=== PATIENT | male | born 1980 | race Caucasian/White ===

== ENCOUNTER → 2017-09-06 18:04 | Outpatient (CLI) | payer OTHER, SELFPAY | PROVIDERS: Family Provider Family Medicine; PCP Family Medicine; Visit Provider Podiatrist | DX: S90.852A Superficial foreign body, left foot, initial encounter (principal) | CPT/HCPCS: 87070; 87205 ==

== ENCOUNTER 2022-07-27 22:41 | Emergency (ER) | payer OTHER, SELFPAY ==
[2022-07-27 22:41] VITALS: BP 141/106; PULSE 71; RESP 18; TEMP 37; O2SAT 93; BMI 38.2
--- NOTE | 2022-07-27 22:55 | EX.ED.UPPERE ---
HPI History of Present Illness HPI Narrative: Patient presents with a laceration to his left hand that occurred tonight. Patient states he was making maple syrup and cut his hand on the edge of a large piece of sheet metal. Patient states that there was large amount of bleeding initially. Patient states that his friend dressed it and applied pressure. Patient denies any paresthesias or weakness. Patient is unsure of his last tetanus. Patient denies any other injuries. Chief Complaint: Laceration Informant: patient Occured/Mechanism Comment: Cut on the corner of a piece of sheet metal. Onset/Context/Timing Onset: Today Context: Sudden Onset Timing: Continuous Quality of Pain: Dull Location: Dorsum of the left hand Worsened by: Nothing Relieved by: Nothing Associated Symptoms Associated Symptoms: Negative for Parasthesia, Weakness or Loss of Funtion Narrative Tetanus Immunization: Unknown PFSH [facility] Medical History (Updated 07/27/22 @ 23:[address] Kevin Hare DO) Injury of meniscus of knee Medical History no medical history Home Medications amoxicillin 875 mg-potassium clavulanate 125 mg tablet 875 mg PO Q12H ##10 12/27/16 [Rx Last Taken Unknown] Allergy/AdvReac Type Severity Reaction Status Date / Time No Known Allergies Allergy Verified 07/27/22 22:44 Surgical History (Updated 07/27/22 @ 22:[address] Kevin Hare DO) H/O hernia repair Hx of arthroscopy of right knee Social History Smoking Status: Never smoker ROS ROS ED Constitutional Constitutional ED: Denies chills or fever(s) Eyes Eyes: Denies blurry vision or change in vision ENT ENT ED: Denies rhinorrhea or sore throat Cardiovascular Cardiovascular: Denies chest pain or palpitations Respiratory/Chest Respiratory/Chest: Denies cough or dyspnea Gastrointestinal Gastrointestinal: Denies nausea or vomiting Genitourinary Genitourinary ED: Denies dysuria or hematuria Musculoskeletal Musculoskeletal: Denies back pain or neck pain Integumentary Denies abscess or rash Neurologic Neurologic: Denies headache(s) or weakness Allergic/Immunologic Allergic/Immunologic ED: Denies mouth swelling or urticaria EXAM Physical Exam Const Vital Signs: 07/27/22 22:41 Temperature 98.6 F Temperature Source Temporal Pulse Rate 71 Respiratory Rate 18 Blood Pressure 141/106 H Blood Pressure Mean 117 Pulse Ox 93 Oxygen Delivery Method Room Air Positive well nourished and well developed General Appearance ED: well developed and NAD HEENT Reports moist mucous membranes Neck full ROM and supple Neuro oriented x3, CN's II-XII intact bilaterally, moves all extremities, no focal motor deficits and no sensory deficits noted Sensorium / Orientation: alert Motor Exam: strength 5/5 throughout Psych mental status grossly normal Skin Skin Narrative: There is a 2.5 cm full-thickness linear laceration of the dorsal aspect of the left hand. There is moderate gapping of the wound margins. There are no foreign bodies visualized. There is no active bleeding noted. There is no bony crepitance or step-off. There is full range of motion. Sensation was intact to light touch in all digits. Capillary refill is less than 2 seconds in all digits. MDM MDM MDM Narrative Medical decision making narrative: The patient was advised of the need for sutures. Patient is agreeable with this. The wound was cleaned and irrigated with copious amounts of normal saline. The wound was anesthetized with 1% plain lidocaine locally. The wound was closed with 5 simple interrupted #4-0 nylon sutures under sterile technique. Patient tolerated the procedure well. Bacitracin dressing was applied. Patient was given a tetanus booster. Patient was instructed to keep the wound clean and dry. Patient was instructed to follow-up with his primary care physician in 5 to 7 days for wound recheck and suture removal. Patient understood and was agreeable with the plan. All questions were answered. Procedures Lacerations Left hand: Length: 2.5 cm Depth: Sub Q Shape: Linear Prep: Sterile Conditions and Chlorhexadine Laceration repair: Irrigated, Lidocaine, Local, Skin sutures and Wound explored Irrigated (ml): 100 Number of Sutures/Ralph: 5 Suture Information: Ethilon, Simple and 4-0 Discharge Plan Triage Chief Complaint: Laceration ED Provider: Kevin Hare Dx/Rx/DC Orders Clinical Impression: Laceration of left hand Instructions: ED Laceration, Hand: All Closures Prescriptions: No Action amoxicillin-pot clavulanate 875 MG tablet 875 mg PO Q12H Qty: 10 0RF Primary Care Provider: Care Physician,No Primary Referrals: NOT,DEFINED [Non-Staff] - 7 Days for suture removal Disposition Disposition: Home, Self Care
[2022-07-27] MEDS: Diphth,Pertuss(Acell),Tet Vac 0.5 ML Vial IM (23:05)
[2022-07-27] MEDS: Lidocaine 1% (20 ml mdv) 20 ML Vial INFILT (23:06)
== END 2022-07-28 | disposition home or self-care (01) ==
PROVIDERS: Emergency Provider Emergency Medicine; Visit Provider Emergency Medicine
DX: S61.412A Laceration without foreign body of left hand, initial encounter (principal); X58.XXXA Exposure to other specified factors, initial encounter
CPT/HCPCS: 12001; 99285

== ENCOUNTER 2023-11-14 02:33 | Emergency (ER) | payer OTHER, SELFPAY ==
[2023-11-14 02:34] VITALS: BP 148/88; PULSE 63; RESP 19; TEMP 37; O2SAT 97; BMI 36.6
--- NOTE | 2023-11-14 02:49 | CT_ITS ---
EXAM: CT ABDOMEN AND PELVIS WITHOUT INTRAVENOUS CONTRAST CLINICAL INDICATION: flank pain TECHNIQUE: Helically acquired images were obtained of the abdomen and pelvis without intravenous contrast. This CT exam was performed using one or more of the following dose reduction techniques: automated exposure control, adjustment of the mA and/or kV according to patient size, and/or use of iterative reconstruction technique. RADIATION DOSE: CTDIvol = 15.61 mGy, DLP = 842.46 mGy-cm COMPARISON: No relevant prior studies available. FINDINGS: LOWER THORAX: Unremarkable. Lung bases are clear. No cardiomegaly. No significant pericardial effusion. ABDOMEN: LIVER: Hepatomegaly with fatty infiltration. GALLBLADDER AND BILE DUCTS: Unremarkable. No calcified gallstones. No gallbladder distention or wall edema. No intra- or extrahepatic biliary ductal dilation. PANCREAS: Unremarkable. No focal cystic mass. SPLEEN: Unremarkable. Normal size without focal cystic or solid mass. ADRENALS: Unremarkable. No nodules. KIDNEYS AND URETERS: There is a 5 mm stone in the proximal right ureter causing mild obstructive changes. Normal renal size and position. STOMACH AND BOWEL: Diverticular disease of the colon but no diverticulitis. No stomach or bowel distention. PELVIS: APPENDIX: No evidence of acute appendicitis. BLADDER: Unremarkable. REPRODUCTIVE: Unremarkable as visualized. No mass. ABDOMEN and PELVIS: INTRAPERITONEAL SPACE: Unremarkable. No ascites or other fluid collection. No free air. BONES/JOINTS: Unremarkable. No suspicious lytic or blastic abnormality. SOFT TISSUES: Unremarkable. No discrete abdominal or pelvic wall hernia. VASCULATURE: Unremarkable. Abdominal aorta is non-dilated. LYMPH NODES: Unremarkable. No enlarged lymph nodes. CT/Abdomen/Pelvis without Cont IMPRESSION: 1. There is a 5 mm stone in the proximal right ureter causing mild obstructive changes. 2. Hepatomegaly with fatty infiltration of the liver. Electronically Signed: Allan Quintero MD at 3:34 EDT ,
[2023-11-14] MEDS: 0.9% Normal Saline (1000mL) 1,000 ML 999 ML IV ×2 (02:51→03:48)
[2023-11-14] MEDS: Morphine 4 MG/ML Syringe IV (02:51)
[2023-11-14] MEDS: Ondansetron 4 MG/2 ML Vial IV (02:51)
[2023-11-14 03:03] LABS: Absolute Lymphocyte Count 4.37 X10^3/uL (0.83-4.51); Absolute Neutrophil Count 6.9 X10^3/uL (2.0-7.7); Basophil# 0.11 X10^3/uL; Basophil% 0.9 % (0-1); Eosinophil# 0.29 X10^3/uL; Eosinophils% 2.3 % (0-5); Hematocrit 45.9 % (40-54); Hemoglobin 15.7 g/dL (13.0-16.5); Lymphocyte # 4.37 X10^3/ul (0.83-4.51); Lymphocyte % 34.1 % (19-41); Mean Corp Hgb Conc 34.2 g/dL (32-36); Mean Corpuscular Hgb 29.2 pg (27.0-32.0); Mean Corpuscular Volume 85.3 fL (80-94); Mean Platelet Vol. 9.2 fl (6.2-12.0); Monocyte# 1.13 X10^3/uL; Monocyte% 8.8 % (0-10); NRBC Flagged by Analyzer 0 % (0-5); Neutrophil # 6.87 X10^3/uL (2.7-7.7); Neutrophil % 53.4 % (47-70); Platelet Count 249 K/mm3 (150-450); RBC Distribution Width CV 13.5 % (11.6-14.6); RBC Distribution Width SD 41.6 fl (35.1-43.9); Red Blood Count 5.38 M/mm3 (4.6-6.2); White Blood Count 12.8 K/mm3 (4.4-11.0)
[2023-11-14 03:15] LABS: Mucous, Urine 0 SEEN /hpf (<or=2+)
[2023-11-14 03:16] LABS: Color, Urine Red (Yellow); Glucose, Dipstick Normal (Normal); Ketone-Dipstick 50 mg/dl (Negative); Leukocyte Esterase-Dipstick 100 /ul (Negative); Nitrite-Dipstick Negative (Negative); Occult Blood-Urine 250 /ul (Negative); Protein-Dipstick 100 mg/dl (Negative); Specific Gravity, Urine 1.025 (1.002-1.030); Urine Bilirubin Dipstick Negative (Negative); Urine Clarity Turbid (Clear); Urine Urobilinogen Normal (Normal)
[2023-11-14 03:21] LABS: Anion Gap 10 (5-15); BUN 17 mg/dL (7-18); BUN/Creat Ratio 12.7 RATIO (10-20); Calcium,Total 9.7 mg/dL (8.5-10.1); Chloride 108 mmol/L (98-107); Creatinine, Serum 1.34 mg/dL (0.70-1.30); EST Glomerular Filtration Rate 61 mL/min (>60); Est Glom Filt Rate - Afr Amer 74 mL/min (>60); Estimated Creatinine Clearance 88.78 ml/min; Glucose 123 mg/dL (74-106); Potassium 3.2 mmol/L (3.5-5.1); Sodium Level 142 mmol/L (136-145)
[2023-11-14] MEDS: Ketorolac 30 MG/ML Syringe IV (03:48)
[2023-11-14 04:24] LABS: Bacteria 4+ /hpf (None Seen); Red Blood Cells-Urine 50-100 SEEN /hpf (0-5); Squamous Epithelial Cells - UA 5-10 SEEN /hpf (0-5); White Blood Cells 10-25 SEEN /hpf (0-5)
[2023-11-14 04:33] VITALS: BP 136/85; PULSE 72; RESP 16; O2SAT 96
--- NOTE | 2023-11-14 05:29 | EX.ED.DYSGE1 ---
HPI History of Present Illness Chief Complaint: Flank Pain Informant: patient and spouse/S.O. Narrative Narrative: Patient is a 43-year-old male with no significant past medical history. He states that he went to bed normally and then awoke around 2 AM with right-sided flank/abdominal pain. He states there was no recent trauma or excessive activity. He states that the pain is leading to nausea and vomiting and radiates towards his groin. He reports that there is also no position of comfort and that motion does not seem to exacerbate the pain. He states he tried [id number] medication without any symptom improvement and secondary to his comes in for evaluation. [facility] Medical History Injury of meniscus of knee Home Medications ?Medication ?Instructions ?Recorded ?Last Taken ?Type cephalexin 500 mg capsule 500 mg PO TID 7 days #21 caps 11/14/23 Unknown Rx ketorolac 10 mg tablet 10 mg PO 4X/DAY PRN pain 5 days 11/14/23 Unknown Rx #20 tabs ondansetron 4 mg disintegrating 4 mg PO TID PRN nausea and 11/14/23 Unknown Rx tablet vomiting #21 tabs oxycodone-acetaminophen 5 mg-325 1 tab PO Q6H PRN pain 3 days #12 11/14/23 Unknown Rx mg tablet (Percocet) tabs tamsulosin 0.4 mg capsule (Flomax) 0.4 mg PO DAILY #14 caps 11/14/23 Unknown Rx turmeric 11/14/23 Unknown History Allergy/AdvReac Type Severity Reaction Status Date / Time No Known Allergies Allergy Verified 07/27/22 22:44 Surgical History Hx of arthroscopy of right knee H/O hernia repair Social History Smoking Status: Never smoker ROS ROS ED Constitutional Constitutional ED: Denies chills or fever(s) ENT ENT ED: Denies sore throat Cardiovascular Cardiovascular: Denies chest pain Respiratory/Chest Respiratory/Chest: Denies cough or dyspnea Gastrointestinal Gastrointestinal: Reports abdominal pain, nausea and vomiting; Denies diarrhea Genitourinary Genitourinary ED: Reports hematuria; Denies dysuria or urinary frequency Musculoskeletal Musculoskeletal: Reports back pain; Denies myalgias Integumentary Denies rash Neurologic Neurologic: Denies headache(s) Hematologic/Lymphatic Hematologic/Lymphatic: Denies easy bleeding or easy bruising EXAM Physical Exam Const Vital Signs: 11/14/23 02:34 11/14/23 04:33 Temperature 98.6 F Temperature Source Oral Pulse Rate 63 72 Respiratory Rate 19 H 16 Blood Pressure 148/88 H 136/85 H Blood Pressure Mean 108 102 Pulse Ox 97 96 Oxygen Delivery Method Room Air Room Air Positive well nourished and well developed General Appearance ED: well developed; Negative for pallor HEENT HEENT Narrative: Mucous membranes are slightly dry and tacky No tongue or lip swelling no oral lesions no airway edema or compromise No secondary findings in the posterior pharynx to suggest infection Eyes PERRL and EOMs intact bilaterally General Eye ED: Negative for scleral icterus Neck supple Neck Narrative: No nuchal rigidity or meningeal signs noted Chest Wall palpation of chest normal Resp normal respiratory effort and clear to auscultation bilaterally Cardio regular rate and regular rhythm Rate: other Other Details: Heart is regular rate and rhythm without murmurs rubs or gallops Radial and carotid pulses are equal and symmetric GI non-distended GI Narrative: Abdomen is soft and nondistended with normal active bowel sounds. Patient does have pain on palpation along the right sided abdomen diffusely without voluntary guarding or rigidity Auscultation: normoactive bowel sounds Palpation: soft Back/Spine Back/Spine Narrative: Positive right CVA pain noted Extremity normal to inspection Neuro oriented x3, CN's II-XII intact bilaterally and no sensory deficits noted Sensorium / Orientation: alert Motor Exam: strength 5/5 throughout Psych mental status grossly normal Skin no rashes or lesions noted and no wounds Skin Narrative: Skin turgor is increased General Skin Exam: Negative for jaundice or pallor MDM MDM MDM Narrative Medical decision making narrative: Patient arrived to ER hypertensive otherwise with stable vitals. He reported sudden onset of right-sided pain without improvement or worsening of position. Concern is for UTI versus pyelonephritis versus kidney stone versus acute kidney injury. Secondary to his basic labs were obtained as well as a noncontrast CT scan. Labs revealed no signs of RENAE severe electrolyte abnormality or urosepsis. CT scan confirmed a 5 mm stone in the proximal ureter which correlates with the location and onset of his pain. The patient received 2 L of fluid as his physical exam did show changes were dehydration. After receiving morphine and Toradol he reported his pain level down to a value of 2. Therefore at this time with no signs of RENAE or urosepsis and improvement of his pain there is no need for admission and he can be discharged home with symptomatic care. History & Record Review Discussion w/independent historian: Patient and Significant other Lab Data Attestation: I reviewed the patient's lab results. Labs: Laboratory Results - last 24 hr 11/14/23 11/14/23 02:46 03:10 WBC 12.8 H RBC 5.38 Hgb 15.7 Hct 45.9 MCV 85.3 MCH 29.2 MCHC 34.2 RDW Std Deviation 41.6 RDW Coeff of Teofilo 13.5 Plt Count 249 MPV 9.2 Immature Gran % (Auto) 0.500 Neut % (Auto) 53.4 Lymph % (Auto) 34.1 [place] % (Auto) 8.8 Eos % (Auto) 2.3 Baso % (Auto) 0.9 Absolute Neuts (auto) 6.9 Absolute Lymphs (auto) 4.37 Nucleated RBC % 0 Sodium 142 Potassium 3.2 L Chloride 108 H Carbon Dioxide 24.0 Anion Gap 10 BUN 17 Creatinine 1.34 H Estim Creat Clear Calc 88.78 Est GFR (MDRD) Af Amer 74 Est GFR (MDRD) Non-Af 61 BUN/Creatinine Ratio 12.7 Glucose 123 H Calcium 9.7 Urine Color Red Urine Clarity Turbid Urine pH 6.0 Ur Specific [place] 1.025 Urine Protein 100 H Urine Glucose (UA) Normal Urine Ketones 50 H Urine Occult Blood 250 H Urine Nitrite Negative Urine Bilirubin Negative Urine Urobilinogen Normal Ur Leukocyte Esterase 100 H Urine RBC 50-100 SEEN Urine WBC 10-25 SEEN Ur Squamous Epith Cells 5-10 SEEN Urine Bacteria 4+ Urine Mucus 0 SEEN Radiography Diagnostic Testing: Clinical Impression(s) from Imaging Studies Abdomen/Pelvis CT 11/14/23 02:49 IMPRESSION: 1. There is a 5 mm stone in the proximal right ureter causing mild obstructive changes. 2. Hepatomegaly with fatty infiltration of the liver. Electronically Signed: Allan Quintero MD at 3:34 EDT , Discharge Plan Triage Chief Complaint: Flank Pain ED Provider: Felipe Rodrigez Dx/Rx/DC Orders Clinical Impression: Renal colic, Kidney stone on right side, Mild dehydration Instructions: ED Kidney Stone with Pain Prescriptions: New oxycodone-acetaminophen [Percocet] 5-325 mg tablet 1 tab PO Q6H PRN (Reason: pain) 3 Days Qty: 12 0RF tamsulosin [Flomax] 0.4 mg capsule 0.4 mg PO DAILY Qty: 14 0RF ondansetron 4 mg tablet,disintegrating 4 mg PO TID PRN (Reason: nausea and vomiting) Qty: 21 0RF ketorolac 10 mg tablet 10 mg PO 4X/DAY PRN (Reason: pain) 5 Days Qty: 20 0RF cephalexin 500 mg capsule 500 mg PO TID 7 Days Qty: 21 0RF No Action turmeric Primary Care Provider: Care Physician,No Primary Referrals: Andrew Matthews MD [Med Staff - Active Staff] - Care Physician,No Primary [Primary Care Provider] - Activity Restrictions/Additional Instructions: Please keep yourself well-hydrated and stay active to help pass your kidney stone. Take the prescribed medication as directed to keep your pain under control. Return to the ER if pain is unbearable or he develop a fever over 100.4. Otherwise follow-up with urology for repeat evaluation and discuss potential for stent placement if you do not spontaneously passed your kidney stone. Print Language: [place] Disposition Disposition: Home, Self Care
[2023-11-14] MEDS: oxyCODONE 5 MG Tablet 10 MG PO (05:56)
[2023-11-14 06:00] VITALS: BP 140/81; PULSE 73; RESP 16; TEMP 37; O2SAT 97; O2SAT 98
== END 2023-11-14 06:05 | disposition home or self-care (01) ==
PROVIDERS: Emergency Provider Emergency Medicine; Visit Provider Emergency Medicine
DX: N20.1 Calculus of ureter (principal); E86.0 Dehydration
CPT/HCPCS: 74176; 80048; 81001; 85025; 87086; 96361; 96374; 96375; 99283; J7030; A4216; J2405

== ENCOUNTER → 2023-12-06 | Outpatient (CLI) | payer OTHER, SELFPAY ==
--- NOTE | 2023-12-06 10:05 | RAD_ITS ---
STUDY: X-RAY - ABDOMEN/PELVIS REASON FOR EXAM: Male, 43 years old. CALCULUS OF KIDNEY TECHNIQUE: Single AP view of the abdomen / pelvis. COMPARISON: CT scan of the same day and also 11/14/2023. FINDINGS: Normal visualized lung bases. 5 mm soft tissue seen in position of a right UVJ, significantly more caudal than on the CT scan. There is an unremarkable bowel gas pattern. There is no demonstrated free abdominal air. The visualized liver, spleen and kidneys are grossly normal in size and morphology. Normal soft tissue structures. Normal visualized osseous structures. RAD/Abdomen Single View IMPRESSION: 5 mm calcification in position compatible with the right UVJ. Electronically Signed: Flaco Ruelas MD at 23:02 EDT ,
== END | disposition home or self-care (01) ==
LOC: MTRAD 10:04
PROVIDERS: Referring Provider Urology; Visit Provider Urology
DX: N20.0 Calculus of kidney (principal)
CPT/HCPCS: 74018

== ENCOUNTER → 2023-12-06 | Outpatient (CLI) | payer OTHER, SELFPAY ==
--- NOTE | 2023-12-06 12:17 | CT_ITS ---
STUDY: CT ABDOMEN AND PELVIS WITHOUT CONTRAST REASON FOR EXAM: Male, 43 years old. Right-sided kidney stone. RADIATION DOSAGE (If Supplied By Facility): CTDIvol = ( 20.51 ) mGy, DLP = ( 997.63 ) mGycm TECHNIQUE: Transaxial images were obtained from the dome of the diaphragm to the symphysis pubis without oral contrast, and without intravenous contrast. Sagittal and coronal images were reconstructed. Individualized dose optimization techniques were used for this CT. COMPARISON: Comparison is made with prior study dated November 14, 2023. FINDINGS: Stable small calcified granuloma in the peripheral lateral aspect of the left lower lobe. The visualized portions of the heart are within normal limits. There is decreased attenuation of the liver consistent with steatosis. Hepatomegaly. Normal gallbladder and extrahepatic biliary system. Normal spleen. Normal pancreas. Normal bilateral adrenal glands. Minimal degree of residual right hydronephrosis. 5 mm stone is seen at the right ureterovesical junction as it enters the urinary bladder. Normal left kidney. Normal visualized stomach. Normal small intestine. There are multiple colonic diverticula consistent with diverticulosis. The appendix is visualized and appears normal. Normal abdominal aorta. Normal inferior vena cava. Normal retroperitoneum. Normal urinary bladder. Normal abdominal wall. There are degenerative changes of the visualized lumbar spine. CT/Abdomen/Pelvis without Cont IMPRESSION: 5 mm calculus at the right ureterovesical junction as it enters the urinary bladder causing a mild degree of residual right hydronephrosis. Diffuse fatty infiltration of the liver. Hepatomegaly. Electronically Signed: Wolfgang Alexandra MD at 13:23 EDT ,
== END | disposition home or self-care (01) ==
LOC: CT 12:14
PROVIDERS: Referring Provider Urology; Visit Provider Urology
DX: N20.0 Calculus of kidney (principal)
CPT/HCPCS: 74176